=== PATIENT | male | born 1980 | race Caucasian/White ===

== ENCOUNTER 2024-01-02 09:59 | Emergency (ER) | payer MEDICARE, SELFPAY ==
[2024-01-02 10:00] VITALS: BP 159/80
[2024-01-02 10:38] VITALS: BP 125/88; BMI 24.6
[2024-01-02 10:43] LABS: % Basophils 0.5 % (0-2); % Eosinophils 6.5 % (0-6); % Immature Granulocytes 0.3 % (0-0.5); % Lymphocytes 19.1 % (20.5-51.1); % Monocytes 7.2 % (1.7-9.3); % Neutrophils 66.4 % (42.2-75.2); Absolute Basophils 0.1 10^3/uL (0-0.2); Absolute Immature Granulocytes 0.1 10^3/uL (0-0.05); Absolute Lymphocytes 2.9 10^3/uL (1.2-3.4); Absolute Monocytes 1.1 10^3/uL (0.1-0.6); Hematocrit 38.9 % (39.0-52.0); Hemoglobin 13.6 g/dL (13.0-18.0); Mean Corpuscular Hgb 30.2 pg (27.0-31.0); Mean Corpuscular Volume 86.4 fL (80.0-94.0); Mean Platelet Volume 10.1 fL (7.4-10.4); Nucleated Red Blood Cells % 0 % (-); Platelet Count 285 10^3/uL (130-400); Red Cell Dist. Width 14.6 % (11.5-14.5); White Blood Cell Count 15.1 10^3/uL (4.8-10.8)
--- NOTE | 2024-01-02 10:44 | ED.GENMED ---
History of Present Illness
General
Chief Complaint: Flank Pain
Source: patient
Exam Limitations: none
Time Seen by Provider: 01/02/24 10:17
Nursing documentation reviewed up to this point in time: agreed with
Travel History
Have you had any contact with someone who has COVID-19?: No
Do you have any symptoms of coronavirus? Fever > 100 degrees, chills, cough, shortness of breath, sore throat, loss of taste or smell, muscle aches, or headache?: No
History of Present Illness
History of Present Illness:
Patient is a 34-year-old male with past medical history of pulmonary embolism DVT IVC filter GI bleed/peptic ulcer disease anemia hyperparathyroidism who presents to the ER complaint of left flank pain which started yesterday. He reports this does
feel similar to his kidney stone pain in the past. Patient reports he has never seen urologist however he has always passed stones on his own. He reports pain is in his left back flank area. This does feel similar. He denies any nausea vomiting.
Denies any injury. Denies any radiation of pain. Denies any hematuria urinary frequency urgency dysuria .denies any fever chills
Past History
Past History
ED Past Medical History: Other (Kidney stones) and Other (Chronic back issues)
ED Past Surgical History: Orthopedic (Back multiple surgeries)
Social History
Tobacco: Non-smoker
Alcohol: None
Review of Systems
Review of Systems
Allergies reviewed?: Yes
All Other Systems: ROS reviewed and negative except as documented in HPI and ROS
Constitutional: Reports no symptoms
Respiratory: Reports no symptoms
Cardiac: Reports no symptoms
ABD/GI: Reports no symptoms
: Reports flank pain
Musculoskeletal: Reports no symptoms
Skin: Reports no symptoms
Neurological: Reports no symptoms
Psychiatric: Reports no symptoms
Phy Exam
General Physical Exam
General Presentation: no apparent distress
General age: appears stated age
General Skin: warm and dry
General Habitus: normal
General Mental: alert
Gastrointestinal Exam
Gastrointestinal Exam: non tender and soft
Neurological Exam
Neurological Exam: alert and oriented x3
Musculoskeletal Exam
Musculoskeletal Exam: full ROM
Skin Exam
Skin Exam: normal color and warm/dry
Psychiatric Exam
Psychiatric Exam: normal mood/affect
Course
Orders/Labs/Results
Orders:
Orders
01/02/24 10:28
IV Insert/Care/Rem.- Treatment PRN
01/02/24 10:36
Complete Blood Count/With Diff Urgent
Comprehensive Metabolic Panel Urgent
01/02/24 10:51
0.9% Sodium Chloride 1000 ml [Nss] 1,000 ml IV BOLUS
01/02/24 10:56
Ketorolac [Toradol] 15 mg IV NOW STA
Ondansetron Injectable [Zofran] 4 mg .ROUTE .STK-MED ONE
01/02/24 10:57
Ketorolac [Toradol] 15 mg .ROUTE .STK-MED ONE
Ondansetron Injectable [Zofran] 4 mg IV NOW STA
01/02/24 11:26
CT Abd/pel Without Iv Or Oral Urgent
Comment:
Reason For Exam: left flank pain
01/02/24 12:19
Morphine Sulfate 4 mg .ROUTE .STK-MED ONE
01/02/24 12:25
Morphine Sulfate 4 mg IV NOW STA
01/02/24 12:28
UA Reflex to Culture [Urinalysis Reflex To Culture] Urgent
Date Specimen was Collected: 01/02/24
Time Specimen was Collected: 12:27
Abnormal Lab Results
01/02/24
10:36
WBC 15.1 H 10^3/uL
(4.8-10.8)
RBC 4.50 L 10^6/uL
(4.70-6.10)
Hct 38.9 L %
(39.0-52.0)
RDW 14.6 H %
(11.5-14.5)
Abs Immat Gran (auto) 0.1 H 10^3/uL
(0-0.05)
Absolute Neuts (auto) 10.0 H 10^3/uL
(1.4-6.5)
Absolute Monos (auto) 1.1 H 10^3/uL
(0.1-0.6)
Absolute Eos (auto) 1.0 H 10^3/uL
(0-0.7)
Lymphocytes % 19.1 L %
(20.5-51.1)
Eosinophils % 6.5 H %
(0-6)
Carbon Dioxide 31 H mmol/L
(22-30)
Creatinine 0.5 L mg/dL
(0.7-1.3)
Calcium 10.3 H mg/dl
(8.4-10.2)
01/02/24 10:36
01/02/24 10:36
Vital Signs
Initial and Last Documented VS:
Initial Vital Signs
Temp Pulse Resp BP Pulse Ox
98.1 F 75 16 159/80 99
01/02/24 10:00 01/02/24 10:00 01/02/24 10:00 01/02/24 10:00 01/02/24 10:00
Last Documented Vital Signs
Temp Pulse Resp BP Pulse Ox
98.1 F 69 16 130/86 97
01/02/24 10:00 01/02/24 13:00 01/02/24 13:00 01/02/24 13:00 01/02/24 13:00
Manager Secondary consulted with Physician
Manager Secondary consulted with physician?: Yes
Name of Physician Consulted: nigel
MDM/Problems Addressed
Differential Diagnosis Includes:
Not limited to renal colic, muscle pain
MDM/Problems Addressed:
Patient is a 43 old male with history of multiple back surgeries, renal colic, PE presents with left flank pain. Patient presented stating that he felt this pain was similar to his kidney stones in the past. He is awake alert no acute distress
denies any fevers however his white count is minimally elevated. Patient's urinalysis negative for infection. CAT scan negative for acute pathology there are small bilateral nonobstructing renal calculi there are no obstructing renal or ureteral
calculi no hydro or hydroureter there is discussed me with interbody fusion and posterior mechanical stabilization. case d/c w/ DR West.
Patient in no acute distress. Possible musculoskeletal pain. Patient however is nontoxic-appearing in no acute distress abdomen soft and nontender no chest pain or shortness of breath will DC with lidocaine patch however discussed close
outpatient have a doctor and to return if worsening of symptoms.
Chronic conditions affecting care:
Chronic back issues history of renal colic
*Radiology
Radiology exam reviewed: radiology read reviewed
*Pulse Oximetry
Patient hypoxic: no
*Critical Care Note
Total Time (30-74mins, 75-104mins- exclusive of procedures): Not Applicable
ED Attending Note
-
Portions of this chart may have been created with voice recognition software.� Occasional wrong word or��sound alike� substitutions may have occurred due to the inherent limitations of voice recognition software.
Discharge Plan
Departure
Patient Disposition: Home (Routine Discharge)
Date of Disposition: 01/02/24
Time of Disposition: 13:50
Patient with high blood pressure during this ER visit?: Yes
Covid-19: Not Applicable
Discharge Problem:
Back pain
Instructions: Back Pain
Prescriptions:
New
lidocaine 5 % adhesive patch,medicated
1 patch topical DAILY Qty: 15 0RF
Rx Instructions:
remove after 12 hrs
No Action
oxycodone-acetaminophen 5 MG/325 MG tablet
1 tab PO Q8HPRN PRN (Reason: mod sev pain) Qty: 15 0RF
lorazepam 1 MG tablet
1 mg PO TIDPRN PRN (Reason: anxiety) Qty: 12 0RF
omeprazole 40 mg Capsule,Delayed Release(Dr/Ec)
40 mg PO DAILY
tramadol 50 mg Tablet
50 mg PO BID PRN (Reason: pain)
Referrals:
Kevin Juarez DO [Family Provider] -
Activity Restrictions/Additional Instructions:
As discussed you may take Tylenol every 4-6 hours as needed. You may use lidocaine patches to affected area daily. This medication sent to pharmacy. Closely however follow-up with your family doctor the next several days for reevaluation of your
symptoms return if any worsening symptoms.
Interventions
Interventions:
*Risk Screen - Suicide Last Done: 01/02/24 10:44
*General Assessment Last Done: 01/02/24 10:44
*Neglect/Abuse Screening Last Done: 01/02/24 10:44
ED- Fall Risk Assessment Last Done: 01/02/24 10:38
*ED COVID-19 Vaccine History Last Done: 01/02/24 10:44
EJ-Jjfcbx-Lkcmczkjms Assessment Last Done: 01/02/24 10:38
ED-Male Genitourinary Assessment Last Done: 01/02/24 10:38
--- NOTE | 2024-01-02 10:49 | EDRN ---
Odette Platt [employer]E [employer] in room w/pt at this time.
[2024-01-02 10:57] LABS: ALT (SGPT) 31 U/L (0-50); AST (SGOT) 24 U/L (17-59); Alkaline Phosphatase 59 U/L (38-126); Blood Urea Nitrogen 16 mg/dl (9-20); Calcium 10.3 mg/dl (8.4-10.2); Carbon Dioxide 31 mmol/L (22-30); Chloride 104 mmol/L (98-107); Estimated Creatinine Clearance > 125 ml/min; Glucose 97 mg/dl (70-99); Potassium 4.3 mmol/L (3.5-5.1); Sodium 139 mmol/L (135-145); Total Bilirubin 0.4 mg/dl (0.2-1.3); Total Protein 6.5 g/dl (6.3-8.2); eGFR > 60.00
[2024-01-02 11:00] VITALS: BP 142/84
[2024-01-02] MEDS: NSS 1000 IV (11:01)
[2024-01-02] MEDS: TORADOL 15 MG IV (11:01)
[2024-01-02] MEDS: ZOFRAN 4 MG IV (11:02)
--- NOTE | 2024-01-02 11:18 | EDRN ---
Pt is aware a urine spec is needed.
[2024-01-02 12:25] VITALS: BP 126/69
[2024-01-02] MEDS: MORPHINE SULFATE 4 MG IV (12:25)
[2024-01-02 12:44] LABS: Urine Albumin Negative (Neg - Trace); Urine Bilirubin Negative (Negative); Urine Character Clear (Clear); Urine Color Yellow; Urine Glucose Negative (Negative); Urine Ketone Negative (Negative); Urine Leukocyte Negative (Negative); Urine Nitrite Negative (Negative); Urine Occult Blood Negative (Negative); Urine Specific Gravity 1.015 (<1.030); Urine Urobilinogen Negative (Neg - 1+)
[2024-01-02 13:00] VITALS: BP 130/86
--- NOTE | 2024-01-02 13:48 | EDRN ---
Odette Arias NP in room w/pt at this time.
[2024-01-02 14:49] VITALS: BP 122/59
== END 2024-01-02 15:15 | disposition home or self-care (01) ==
LOC: EMR 09:59
PROVIDERS: Nurse Practitioner; EMERGENCY PHYSICIAN Student in an Organized Health Care Education/Training Program; FAMILY PHYSICIAN Family Medicine
DX: M54.9 Dorsalgia, unspecified (principal); R10.9 Unspecified abdominal pain; Z86.711 Personal history of pulmonary embolism; Z87.11 Personal history of peptic ulcer disease; Z87.442 Personal history of urinary calculi
CPT/HCPCS: 99284; 96374; 96375; 96361; 74176; 80053; 81003; 85025

== ENCOUNTER → 2024-01-09 14:21 | Outpatient (REF) | payer MEDICARE, SELFPAY | LOC: RAD 14:21 | PROVIDERS: ATTENDING PHYSICIAN Surgery; FAMILY PHYSICIAN Family Medicine | DX: R10.31 Right lower quadrant pain (principal); N50.89 Other specified disorders of the male genital organs | CPT/HCPCS: 72193; 76870; 93976; Q9967 ==

== ENCOUNTER 2024-02-02 19:20 | Emergency (ER) | payer MEDICARE, SELFPAY ==
[2024-02-02 19:23] VITALS: BP 175/97
[2024-02-02 20:26] VITALS: BMI 22.8
[2024-02-02 20:32] VITALS: BP 149/80
--- NOTE | 2024-02-02 20:35 | EDRN ---
Report received, patient went right to ultrasound from protocol room, once back in room will obtain blood work that was ordered.
[2024-02-02 21:19] VITALS: BP 128/81
[2024-02-02 21:27] LABS: % Basophils 0.5 % (0-2); % Eosinophils 3.8 % (0-6); % Immature Granulocytes 0.4 % (0-0.5); % Lymphocytes 17.2 % (20.5-51.1); % Monocytes 6.1 % (1.7-9.3); Absolute Basophils 0.1 10^3/uL (0-0.2); Absolute Eosinophils 0.4 10^3/uL (0-0.7); Absolute Lymphocytes 1.9 10^3/uL (1.2-3.4); Absolute Monocytes 0.7 10^3/uL (0.1-0.6); Absolute Neutrophils 7.9 10^3/uL (1.4-6.5); Hematocrit 39.1 % (39.0-52.0); Hemoglobin 13.7 g/dL (13.0-18.0); Mean Corpuscular Hgb 29.5 pg (27.0-31.0); Mean Corpuscular Volume 84.1 fL (80.0-94.0); Mean Platelet Volume 9.8 fL (7.4-10.4); Nucleated Red Blood Cells % 0 % (-); Platelet Count 298 10^3/uL (130-400); Red Blood Cell Count 4.65 10^6/uL (4.70-6.10); White Blood Cell Count 10.9 10^3/uL (4.8-10.8)
[2024-02-02 21:40] LABS: INR 0.99; PT 12.9 Sec (11.4-14.6)
[2024-02-02 21:47] LABS: ALT (SGPT) 37 U/L (0-50); AST (SGOT) 37 U/L (17-59); Albumin 4.7 g/dl (3.5-5.0); Alkaline Phosphatase 64 U/L (38-126); Blood Urea Nitrogen 10 mg/dl (9-20); Calcium 10.6 mg/dl (8.4-10.2); Carbon Dioxide 31 mmol/L (22-30); Chloride 102 mmol/L (98-107); Estimated Creatinine Clearance > 125 ml/min; Glucose 80 mg/dl (70-99); Potassium 4.1 mmol/L (3.5-5.1); Sodium 140 mmol/L (135-145); Total Bilirubin 0.5 mg/dl (0.2-1.3); Total Protein 7.3 g/dl (6.3-8.2); eGFR > 60.00
[2024-02-02 21:51] LABS: Troponin I < 0.012 ng/ml
[2024-02-02 22:00] VITALS: BP 128/69
--- NOTE | 2024-02-02 22:26 | ED.GENMED ---
History of Present Illness
General
Chief Complaint: DVT/Possible Blood Clot
Source: patient, records, spouse and previous hospital records
Exam Limitations: none
Time Seen by Provider: 02/02/24 22:00
Nursing documentation reviewed up to this point in time: agreed with
Travel History
Have you had any contact with someone who has COVID-19?: No
Do you have any symptoms of coronavirus? Fever > 100 degrees, chills, cough, shortness of breath, sore throat, loss of taste or smell, muscle aches, or headache?: No
History of Present Illness
History of Present Illness:
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 History of chronic low back pain, previous lumbar surgeries, chronically maintained on tramadol, lorazepam.
History of GERD, peptic ulcer disease, bleeding ulcer. He presents with 2-day history of left posterior calf pain, burning in nature, constant. He denies increase in his chronic low back pain, no recent trauma nor fall. He denies weakness nor
numbness. He denies swelling, no rash, no cough no shortness of breath. He does admit to rare brief lower substernal chest pain that is nonradiating, intermittent and somewhat chronic in nature which he attributes to his GERD.
Evaluated in this ED April 2023 with complaints of several week history of chest pain, shortness of breath. Unremarkable ED evaluation including negative troponins, unremarkable EKG, negative D-dimer, negative CT of the chest/PE study and negative
venous Dopplers bilaterally.
He admits that he has had intermittent left calf pain and he is unsure if and when he should come to the ED. Although he admits that he has had no swelling to his calf he believes he had no swelling to his calf with previous left lower extremity
DVT.
He does follow with orthopedic duplication specialist and has been prescribed Celebrex/Lyrica in the past but did not do well with these medications stating significant fatigue from Lyrica and no improvement in pain with Celebrex.
He is scheduled for inguinal and umbilical hernia repair, outpatient procedure February 09.
Past History
Past History
ED Past Medical History: GERD, Psychiatric, Other (Kidney stones) and Other (Chronic back issues, DVT/PE, upper GI bleed related to peptic ulcers)
ED Past Surgical History: Orthopedic (Back multiple surgeries) and Other (Vena cava filter-removed June 2022)
Social History
Tobacco: Non-smoker
Alcohol: None
Living: with family
Employment: Disabled
Family History
Family History: Other (Noncontributory)
Phy Exam
Physical Exam
Physical Exam:
GENERAL: 43-year-old gentleman appears his stated age, awake and alert, appears in no acute distress. Significant other accompanying.
EYE: pupils equal and reactive. anicteric
NECK: Supple, nontender, no meningismus, no significant adenopathy.
ENT: oral mucosa is moist. No rhinorrhea.
CARDIAC: Regular rate and rhythm. no murmur. No chest wall tenderness.
LUNGS: Clear breath sounds bilaterally, no acute respiratory distress, no wheezes/rales/rhonchi
ABDOMEN: Soft, nondistended, without focal tenderness, normoactive BS.
NEUROLOGICAL: Alert and oriented x3, no focal neuro deficits. Gait is steady.
SKIN: Warm and dry, normal color, skin intact. No rash.
MUSCULOSKELETAL: No C/C/E. peripheral pulses are full and equal b/l. No palpable tenderness. Negative Homans' sign.
PSYCH: Mildly anxious. Cooperative and easily communicative.
Course
Orders/Labs/Results
Orders:
Orders
02/02/24 19:27
US Periph Venous LOWER Ext LT Urgent
Comment:
Reason For Exam: r/o DVT
02/02/24 19:28
EKG [Electrocardiogram (*1)] Urgent
Reason for Study: Chest Pain
EKG- Treatment ONCE
02/02/24 21:10
Complete Blood Count/With Diff Urgent
Comprehensive Metabolic Panel Urgent
Prothrombin Time Urgent
Troponin I Urgent
02/02/24 22:25
Gabapentin [Neurontin] 300 mg PO NOW STA
Abnormal Lab Results
02/02/24
21:10
WBC 10.9 H 10^3/uL
(4.8-10.8)
RBC 4.65 L 10^6/uL
(4.70-6.10)
Absolute Neuts (auto) 7.9 H 10^3/uL
(1.4-6.5)
Absolute Monos (auto) 0.7 H 10^3/uL
(0.1-0.6)
Lymphocytes % 17.2 L %
(20.5-51.1)
Carbon Dioxide 31 H mmol/L
(22-30)
Creatinine 0.5 L mg/dL
(0.7-1.3)
Calcium 10.6 H mg/dl
(8.4-10.2)
02/02/24 21:10
02/02/24 21:10
Vital Signs
Initial and Last Documented VS:
Initial Vital Signs
Temp Pulse Resp BP Pulse Ox
98.2 F 69 17 175/97 98
02/02/24 19:23 02/02/24 19:23 02/02/24 19:23 02/02/24 19:23 02/02/24 19:23
Last Documented Vital Signs
Temp Pulse Resp BP Pulse Ox
98.2 F 62 14 128/69 95
02/02/24 19:23 02/02/24 22:00 02/02/24 22:00 02/02/24 22:00 02/02/24 22:00
MDM/Problems Addressed
Differential Diagnosis Includes:
2-day history of left posterior calf pain, burning in nature. No history of recent trauma. History of chronic low back pain, multiple previous lumbar surgeries. Prior history of DVT/PE, vena cava filter.
Overall exam is benign.
Concern for DVT, neuropathic pain. There is no evidence of rash/cellulitis. No focal neurologic deficits.
During nursing triage patient mentioned brief chest pain that comes and goes on a somewhat chronic basis. No other associated symptoms. No shortness of breath, no palpitations. He does have history of GERD/peptic ulcer disease. No history of CAD.
Prior unremarkable ED visit for complaints of chest pain associated with shortness of breath April 2023. Unremarkable ED visit at that time including negative PE study. Negative D-dimer. Negative serial troponins. Negative Dopplers bilaterally.
Chronic conditions affecting care: Other (Chronic low back pain, prior DVT/PE)
Acute Exacerbation and/or Progression of Chronic Illness:
Concern for neuropathic pain left lower extremity/sciatica. Concern for exacerbation of low back pain with sciatica left lower extremity.
Intolerant to Lyrica/Celebrex in the past prescribed by orthopedic/duplication specialist.
Chronically maintained on tramadol and lorazepam prescribed by PCP.
Venous Doppler left lower extremity negative for DVT.
Labs are unremarkable. Normal troponin. EKG is unremarkable and unchanged from previous.
Will give a one-time dose of gabapentin and recommend to follow-up with PCP as well as orthopedic/duplication specialist.
Continue daily stretching exercises and continue current medications.
*Radiology
Radiology exam reviewed: radiology read reviewed (Venous Doppler negative for DVT.)
*Pulse Oximetry
Patient hypoxic: no
*EKG
Interpreted by ED Provider?: Yes
Interpretation: normal
Comparison EKG: no changes (Unchanged from previous April 2023)
Rate: normal
Rhythm: sinus
[place]: normal axis
Interval: normal interval
QRS Pattern: normal QRS
Ischemia: no ischemia
*Biomedical Engineer Interpretation
Rate: normal
Interpretation: normal
Rhythm: sinus
*Critical Care Note
Total Time (30-74mins, 75-104mins- exclusive of procedures): Not Applicable
ED Attending Note
-
Portions of this chart may have been created with voice recognition software.� Occasional wrong word or��sound alike� substitutions may have occurred due to the inherent limitations of voice recognition software.
Discharge Plan
Departure
Patient Disposition: Home (Routine Discharge)
Date of Disposition: 02/02/24
Time of Disposition: 22:27
Patient with high blood pressure during this ER visit?: No
Condition: Good
Discharge Problem:
neuropathic pain of left calf
Instructions: Sciatica (DC), Radiculopathy (DC)
Prescriptions:
No Action
lorazepam 1 MG tablet
1 mg PO TIDPRN PRN (Reason: anxiety) Qty: 12 0RF
tramadol 50 mg Tablet
50 mg PO BID PRN (Reason: pain)
Referrals:
Kevin Juarez, [Family Provider] - Call in 1-3 days for appt
Interventions
Interventions:
*Risk Screen - Suicide Last Done: 02/02/24 20:35
*General Assessment Last Done: 02/02/24 20:29
*Neglect/Abuse Screening Last Done: 02/02/24 20:34
ED- Fall Risk Assessment Last Done: 02/02/24 20:35
*ED COVID-19 Vaccine History Last Done: 02/02/24 20:28
*Nursing Disposition Last Done: 02/02/24 22:54
ED- Cardiac Assessment Last Done: 02/02/24 20:35
ED- Pulmonary Assessment Last Done: 02/02/24 20:35
ED-Peripheral Vascular Assessment Last Done: 02/02/24 20:35
ED-Skin Assessment Last Done: 02/02/24 20:35
Discharge Date and Time
Discharge Date/Time: 02/02/24 22:55
[2024-02-02] MEDS: NEURONTIN 300 MG PO (22:36)
== END 2024-02-02 22:55 | disposition home or self-care (01) ==
LOC: EMR 19:20
PROVIDERS: Emergency Medicine; EMERGENCY PHYSICIAN Emergency Medicine; FAMILY PHYSICIAN Family Medicine
DX: M79.662 Pain in left lower leg (principal); M54.59 Other low back pain; G89.29 Other chronic pain; G62.9 Polyneuropathy, unspecified; K21.9 Gastro-esophageal reflux disease without esophagitis; Z86.718 Personal history of other venous thrombosis and embolism; Z86.711 Personal history of pulmonary embolism
CPT/HCPCS: 99285; 80053; 84484; 85025; 85610; 93005; 93971

== ENCOUNTER → 2024-02-10 06:24 | Day surgery (SDC) | payer MEDICARE, SELFPAY ==
[2024-02-10] VITALS (10 sets, daily range): BP systolic 117–142; BP diastolic 64–89; BMI 23.5
[2024-02-10] MEDS: TYLENOL 1000 MG PO (11:39)
[2024-02-10] MEDS: NORMOSOL-R 1000 IV (11:40)
--- NOTE | 2024-02-10 12:33 | HP.FOC2 ---
Focused History & Physical
Chief Complaint
HPI:
Chief Complaint: Right groin pain
HPI / Indication for Planned Procedure: Patient is a 43-year-old male with chronic inguinodynia status post plug and patch open right inguinal herniorrhaphy. He has had persistent pain for which he has been previously managed by pain management.
Due to persistence of symptoms he presents today for scheduled planned removal of old hernia mesh with subsequent repair.
Relevant Past Medical History: Other (Ankylosing spondylitis, remote history of DVT/PE, gastritis, parathyroid, hypertension)
Relevant Social History: Negative
Relevant Family History: Negative
Relevant Past Surgical History: Positive for (Multiple back surgeries, laparoscopic left inguinal hernia repair and umbilical hernia repair, repair of biceps rupture, ulnar nerve decompression, open right inguinal herniorrhaphy)
Review of Systems
Review of Pertinent Systems: All Systems Negative
Medication
See Medication form for detailed medications: Yes
Medication List (including Herbals & OTC):
tramadol 50 mg tablet 50 mg PO TID PRN pain 10/05/22
lorazepam 1 mg tablet 1 mg PO BID 02/06/24
Medications Reviewed: Yes
Allergies and Reactions
Patient has Allergies: No
Noted Allergies and Reactions:
Allergy/AdvReac Type Severity Reaction Status Date / Time
No Known Allergies Allergy Verified 02/10/24 11:27
Pertinent Physical Exam
All Other Systems: Negative
Head/Neck: Normal
Lungs: Normal
Heart: Normal
Abdomen: Other (Right inguinal tenderness, palpable mesh plug in the right inguinal area, right inguinal scar)
Extremities: Normal
Neurological: Normal
Diagnosis / Assessment
43-year-old male with chronic right inguinodynia presenting for removal of old hernia mesh and repair right inguinal hernia with mesh
Plan / Procedure
Robotic assisted laparoscopic repair right inguinal hernia with mesh, old hernia mesh robotic and open
Anesthesia/Sedation to be done by Anesthesia Provider: Yes
--- NOTE | 2024-02-10 12:37 | W.SUR.PREOP ---
Pre-Operative Surgical Note
-
I have examined this patient prior to the performance of the scheduled procedure.
The patient's condition is unchanged from the time of the current History and
Physical and the patient is able to undergo the scheduled procedure.
[2024-02-10] MEDS: DILAUDID 0.5 MG IV ×4 (16:54→17:58)
--- NOTE | 2024-02-10 16:59 | W.IMMPOSTOP ---
Addendum entered and electronically signed by Dale Levy MD 02/12/24 07:41:
#[id number]
Original Note:
Surgical Immed Post Op Note
-
Primary Surgeon: Cam
Assisting Surgeon: Shaina Singh
Pre-op Diagnosis: Chronic right inguinodynia status post open right inguinal herniorrhaphy with mesh
Post-op Diagnosis: Chronic right inguinodynia status post open right inguinal herniorrhaphy with mesh
Procedure Performed: Robotic assisted laparoscopic removal right inguinal mesh plug/open removal right inguinal mesh patch
Robotic assisted laparoscopic KERWIN repair right inguinal hernia with mesh; 3D max large mid weight
Anesthesia Type: GETA +0.25% Marcaine
Specimen / Cultures: None
Estimated Blood Loss: 20 mL
Complications: None immediate
Operative Findings: Large mesh plug incorporated overlying spermatic cord structures at the internal ring. On lay patch also fully incorporated into right inguinal space and surrounding cord structures secured with what appeared to be 2-0 Prolene
sutures. Entire mesh plug and patch removed as well as Prolene sutures. Robotic assisted laparoscopic KERWIN repair inguinal hernia created by removal of previously placed mesh -3D max large mid weight mesh.
== END | disposition home or self-care (01) ==
LOC: SDS 06:24
PROVIDERS: ATTENDING PHYSICIAN Surgery
DX: K40.91 Unilateral inguinal hernia, without obstruction or gangrene, recurrent (principal); R10.31 Right lower quadrant pain; N50.89 Other specified disorders of the male genital organs
CPT/HCPCS: 49651; C1781

== ENCOUNTER → 2024-10-13 08:31 | Outpatient (REF) | payer MEDICARE, SELFPAY | LOC: HWRAD 08:31 | PROVIDERS: ATTENDING PHYSICIAN Specialist; FAMILY PHYSICIAN Family Medicine | DX: N50.819 Testicular pain, unspecified (principal) | CPT/HCPCS: 76870; 93976 ==

== ENCOUNTER → 2024-10-14 14:31 | Outpatient (REF) | payer MEDICARE, SELFPAY | LOC: RAD 14:31 | PROVIDERS: ATTENDING PHYSICIAN Specialist; FAMILY PHYSICIAN Family Medicine; REFERRING PHYSICIAN Surgery | DX: N50.819 Testicular pain, unspecified (principal) | CPT/HCPCS: 72193; Q9967 ==

== ENCOUNTER 2024-12-16 06:22 | Day surgery (SDC) | payer MEDICARE, SELFPAY ==
[2024-12-16] VITALS (9 sets, daily range): BP systolic 120–147; BP diastolic 70–89; BMI 26.7
[2024-12-16] MEDS: NORMOSOL-R/PLASMALYTE-A 1000 IV (07:41)
[2024-12-16] MEDS: DILAUDID 0.5 MG IV ×2 (10:30→10:49)
[2024-12-16] MEDS: ROXICODONE 5 MG PO (11:24)
== END 2024-12-16 11:54 | disposition home or self-care (01) ==
LOC: SDS 06:22
PROVIDERS: ATTENDING PHYSICIAN Specialist
DX: N50.89 Other specified disorders of the male genital organs (principal); N50.811 Right testicular pain
CPT/HCPCS: 54520; 88305